=== PATIENT | female | born 1980 ===

== ENCOUNTER 2020-12-16 13:23 | Outpatient (REF) | payer BC, SELFPAY ==
--- NOTE | ~2020-12-16 | MM_ITS ---
EXAMINATION: MM DIAGNOSTIC DIGITAL BREAST TOMOSYNTHESIS, LEFT US DIAGNOSTIC ULTRASOUND BREAST, LEFT CLINICAL INFORMATION: Left breast pain for-5 weeks upper outer retroareolar. Fullness breast. No discharge. Prior outside imaging from [place] currently unavailable. No known family history breast cancer. The lifetime risk of breast cancer based on the Tyrer-Cuzick Model is 12%. COMPARISON: None. TECHNIQUE: Digital breast tomosynthesis is performed in both the craniocaudal and mediolateral oblique views along with computer-aided detection (CAD). Synthesized 2D images are generated from the tomosynthesis. Additional spot exaggerated CC view is obtained. Ultrasound left breast is targeted to the area of clinical concern upper outer breast. Patient is able to point to area of concern at time of imaging. Imaging is performed with patient both supine and upright using grayscale imaging and color Doppler without and with harmonics. FINDINGS: There are scattered areas of fibroglandular density (ACR BI-RADS breast composition Category b). Parenchymal pattern is unremarkable. There is no mass or architectural abnormality. No abnormal calcifications. The skin contours are smooth. The axilla is unremarkable. Ultrasound demonstrates no cystic or solid mass or focal architectural abnormality. No focal duct ectasia. No skin thickening or edema tracking in soft tissue planes. Results are discussed with the patient at time of visit. Patient should be managed based on the clinical impression. If clinically indicated, further evaluation may be considered with surgical consult. Decision to proceed with biopsy should be based on clinical grounds and degree of clinical concern. MM/MM tomosynthesis diagnostic LT IMPRESSION: No mammographic evidence of malignancy or inflammatory changes. Unremarkable targeted left breast ultrasound.. ASSESSMENT: BI-RADS 1: Negative RECOMMENDATION: 1. Patient should be managed based on the clinical impression. 2. Radiology department staff will attempt to retrieve prior [id number] mammography to allow for comparison in an addendum report. 3. Otherwise, routine annual screening mammography. This patient's information was entered into a reminder system with a target due date for their next mammogram.
== END 2020-12-16 13:24 | disposition home or self-care (01) ==
LOC: HO.MAMMO 13:23
PROVIDERS: Visit Provider Family Medicine
DX: N64.4 Mastodynia (principal)
CPT/HCPCS: 76642; 77061; 77065